=== PATIENT | female | born 1940 | race Caucasian/White ===

== ENCOUNTER 2016-05-12 11:32 | Observation (INO) | payer MEDICARE, BC ==
[2016-05-12] MEDS ORDERED: SODIUM CHLORIDE 0.9% 1,000 ML IV STA (11:48)
[2016-05-12] MEDS ORDERED: ASPIRIN 81 MG CHEW PO STA (11:48)
--- NOTE | 2016-05-12 12:02 | ED ---
Chest Pain HPI - General Source: patient, RN notes reviewed Mode of arrival: wheelchair Limitations: no limitations <Alexia Fragoso - Last Filed: 05/12/16 14:28> <Wang Conteh - Last Filed: 05/12/16 14:44> - General Chief Complaint: Chest Pain Stated Complaint: chest pain Time Seen by Provider: 05/12/16 11:42 - History of Present Illness Initial Comments: 75-year-old female presents emergency department chief complaint of chest pain. Patient has been having this chest pain on and off for the past 2 weeks. Patient states her last aerosol it's developed some palpitations and some heaviness. Patient denies shortness of breath she denies nausea and vomiting she denies diaphoresis with it. Patient denies any heart history states she did have a cardiac stress test done back in November that was normal. Patient states this pain is just new which never had before so she was concerned. Patient states she hasn't had any fever chills with this. Patient denies any other symptoms. Patient's pain is moderate she currently is including. Patient states she does have anxiety and states it feels like anxiety but just doesn't feel the same. Patient denies any recent fever, chills, shortness of breath, back pain, abdominal pain, nausea vomiting, numbness or tingling, dysuria or hematuria, constipation or diarrhea, headaches or visual changes, or any other current symptoms. (Alexia Fragoso) - Related Data Home Medications Medication Instructions Recorded Confirmed Atorvastatin [Lipitor] 20 mg PO HS 05/12/16 05/12/16 Calcium/Magnesium/Zinc 1 tab PO DAILY 05/12/16 05/12/16 [Mlpxddh-Orjtlojwk-Lvpw Tablet] Ibuprofen [Motrin] 600 mg PO Q6H PRN 05/12/16 05/12/16 Losartan [Cozaar] 25 mg PO DAILY 05/12/16 05/12/16 Timolol 0.5% Ophth Soln [Timoptic 1 drop BOTH EYES DAILY 05/12/16 05/12/16 0.5% Ophth Soln] amLODIPine [Norvasc] 10 mg PO DAILY 05/12/16 05/12/16 metFORMIN HCL 1,000 mg PO BID 05/12/16 05/12/16 traMADol HCL [Ultram] 50 mg PO Q6H PRN 05/12/16 05/12/16 valACYclovir HCL [Valacyclovir] 1,000 mg PO BID PRN 05/12/16 05/12/16 Allergies Allergy/AdvReac Type Severity Reaction Status Date / Time Penicillins Allergy Rash/Hives Verified 05/12/16 12:03 lisinopril AdvReac Cough Verified 05/12/16 12:03 Review of Systems ROS Other: All systems not noted in ROS Statement are negative. <Alexia Fragoso - Last Filed: 05/12/16 14:28> ROS Other: All systems not noted in ROS Statement are negative. <Wang Conteh - Last Filed: 05/12/16 14:44> ROS Statement: Those systems with pertinent positive or pertinent negative responses have been documented in the HPI. EKG Findings - EKG Comments: EKG Findings:: normal sinus rhythm 67 bpm, normal axis, no atopy, no S-T depressions or elevations, <Alexia Fragoso - Last Filed: 05/12/16 14:28> Past Medical History Past Medical History: Heart Failure, Diabetes Mellitus, Hyperlipidemia, Hypertension History of Any Multi-Drug Resistant Organisms: None Reported Past Surgical History: Appendectomy, Hysterectomy, Orthopedic Surgery, Tubal Ligation Additional Past Surgical History / Comment(s): coil anuerysm, catatact, Past Psychological History: No Psychological Hx Reported Smoking Status: Former smoker Past Alcohol Use History: None Reported Past Drug Use History: None Reported <Alexia Fragoso - Last Filed: 05/12/16 14:28> General Exam Limitations: no limitations <Alexia Fragoso - Last Filed: 05/12/16 14:28> <Wang Conteh - Last Filed: 05/12/16 14:44> - General Exam Comments Initial Comments: General: The patient is awake and alert, in no distress, and does not appear acutely ill. Eye: Pupils are equal, round and reactive to light, extra-ocular movements are intact; there is normal conjunctiva bilaterally. No signs of icterus. Ears, nose, mouth and throat: There are moist mucous membranes and no oral lesions. Neck: The neck is supple, there is no tenderness. Cardiovascular: There is a regular rate and rhythm. No murmur, rub or gallop is appreciated. Respiratory: Lungs are clear to auscultation, respirations are non-labored, breath sounds are equal. No wheezes, stridor, rales, or rhonchi. Gastrointestinal: Soft, non-distended, non-tender abdomen without masses or organomegaly noted. There is no rebound or guarding present. No CVA tenderness. Bowel sounds are unremarkable. Back: There is no tenderness to palpation in the midline. There is no obvious deformity. No rashes noted. Musculoskeletal: Normal ROM, no tenderness, There is no pedal edema. There is no calf tenderness or swelling. Sensation intact. Pulses equal bilaterally 2+. Neurological: CN II-XII intact, There are no obvious motor or sensory deficits. Coordination appears grossly intact. Speech is normal. Skin: Skin is warm and dry and no rashes or lesions are noted. Psychiatric: Cooperative, appropriate mood & affect, normal judgment. (Alexia Fragoso) Course <Alexia Fragoso - Last Filed: 05/12/16 14:28> <Wang Conteh - Last Filed: 05/12/16 14:44> Vital Signs 05/12/16 05/12/16 05/12/16 11:35 12:23 12:28 Temperature 98.5 F Pulse Rate 75 64 81 Respiratory 20 18 18 Rate Blood Pressure 171/75 184/88 138/73 O2 Sat by Pulse 96 99 97 Oximetry 05/12/16 05/12/16 05/12/16 12:29 12:31 13:47 Temperature Pulse Rate 76 63 Respiratory 18 18 17 Rate Blood Pressure 127/73 145/70 O2 Sat by Pulse 97 98 Oximetry - Reevaluation(s) Reevaluation #1: 05/12/16 13:15 Patient's pain completely resolved with nitroglycerin. (Alexia Fragoso) Reevaluation #2: 05/12/16 14:43 I did a kduj-hz-sdar exam of the patient she is resting comfortably with no chest pain at this time. Heart sounds are within normal limits at this time lungs are clear. No tenderness palpation of the chest wall. She does describe a squeezing type back pain. She'll be admitted with cardiology consultation. The case was discussed with the hospitalist. (Wang Conteh) Chest Pain MDM <Alexia Fragoso - Last Filed: 05/12/16 14:28> <Wang Conteh - Last Filed: 05/12/16 14:44> - [facility] 75-year-old female presents emergency Department chief complaint of chest pain. At this time the patient lab work was reviewed and negative. Patient's pain did improve with the nitro. At this time with the patient's health history with increasing pain there is concern for cardiac origin. At this time we will admit the patient we will start her on ACS protocol. Discussed with patient's family and they do agree with the plan. The case was discussed with the on- call physician who does agree as well. (Alexia Fragoso) Disposition Time of Disposition: 14:28 Decision Date: 05/12/16 Decision Time: 14:28 <Alexia Fragoso - Last Filed: 05/12/16 14:28> <Wang Conteh - Last Filed: 05/12/16 14:44> Clinical Impression: Unstable angina Disposition: ADMITTED IP TO THIS [facility] Condition: Stable Referrals: None,Stated [Primary Care Provider] - 1-2 days
[2016-05-12] MEDS: NITROGLYCERIN SL TABS 0.4 MG TAB SUBLINGUAL STA ×2 (12:23→12:29)
[2016-05-12 12:31] LABS: Basophils % (A) 0 %; CH 27.5; CHCM 33.3; Eosinophils # (A) 0.2 k/uL (0-0.7); Eosinophils % (A) 2 %; HDW 3.19; HGB 11.2 gm/dL (11.4-16.0); Luc # (Auto) 0.13; Luc % (Auto) 2; Lymphocytes # (A) 1.4 k/uL (1.0-4.8); Lymphocytes % (A) 17 %; MCH 27.5 pg (25.0-35.0); MCHC 33.1 g/dL (31.0-37.0); MCV 83.1 fL (80.0-100.0); Mean Platelet Volume 6.6; Monocytes # (A) 0.4 k/uL (0-1.0); Monocytes % (A) 5 %; Neutrophils # (A) 5.9 k/uL (1.3-7.7); Neutrophils % (A) 74 %; RBC 4.09 m/uL (3.80-5.40); RDW 14.6 % (11.5-15.5); WBC (Perox) 8.32
[2016-05-12 12:43] LABS: Partial Thromboplastin Time 22.6 sec (22.0-30.0); Prothrombin Time 10.6 sec (9.0-12.0)
--- NOTE | 2016-05-12 12:49 | XR ---
EXAMINATION TYPE: XR chest 2V DATE OF EXAM: 05/12/2016 12:45 PM COMPARISON: NONE INDICATION: Chest pain TECHNIQUE: Frontal and lateral views of the chest are obtained. FINDINGS: The heart size is normal. The pulmonary vasculature is normal. The lungs are clear. IMPRESSION: 1. No acute pulmonary process.
[2016-05-12 12:50] LABS: ALT 30 U/L (9-52); AST 21 U/L (14-36); Alkaline Phosphatase 58 U/L (38-126); Amylase 57 U/L (30-110); Anion Gap 18 mmol/L; Blood Urea Nitrogen 17 mg/dL (7-17); Carbon Dioxide 23 mmol/L (22-30); Chloride 104 mmol/L (98-107); Glucose 93 mg/dL (74-99); Non-African American GFR(MDRD) 56 (>60 ml/min/1.73 sqM); Potassium 4.1 mmol/L (3.5-5.1); Sodium 145 mmol/L (137-145); Total Bilirubin 0.4 mg/dL (0.2-1.3); Total Protein 7.4 g/dL (6.3-8.2)
[2016-05-12 12:51] LABS: Appearance,Urine Clear (Clear); Bilirubin,Urine Negative (Negative); Glucose,Urine (UA) Negative (Negative); Ketones,Urine Negative (Negative); Leukocyte Esterase,Urine Small (Negative); Mucus,Urine Rare /hpf; Nitrite,Urine Negative (Negative); Particle Count 2377; Protein,Urine Trace (Negative); RBC,Urine 1 /hpf (0-5); Specific Gravity,Urine 1.012 (1.001-1.035); Squamous Epithelial Cell,Urine 2 /hpf (0-4); UA Billing (MACRO vs. MICRO) MICRO; Urobilinogen,Urine <2.0 mg/dL (<2.0); WBC,Urine 2 /hpf (0-5)
[2016-05-12 12:52] LABS: Creatine Kinase 36 U/L (30-135)
[2016-05-12 13:06] LABS: Creatine Kinase MB 0.2 ng/mL (0.0-2.4); Troponin I <0.012 ng/mL (0.000-0.034)
[2016-05-12] MEDS ORDERED: NITROGLYCERIN SL TABS 0.4 MG TAB SUBLINGUAL PRN (14:29)
[2016-05-12] MEDS ORDERED: HEPARIN SODIUM,PORCINE 5,000 UNIT/ML 1 ML VIAL IV ONE (14:29)
[2016-05-12] MEDS ORDERED: IBUPROFEN 600 MG TAB PO PRN (14:30)
[2016-05-12] MEDS ORDERED: valACYclovir HCL 1,000 MG TABLET PO PRN (14:30)
[2016-05-12] MEDS ORDERED: HEPARIN SODIUM,PORCINE/D5W PMX 25,000 UNIT in DEXTROSE/WATER 1 500ML.BAG IV SCH (14:30)
[2016-05-12 19:23] LABS: Creatine Kinase 34 U/L (30-135)
[2016-05-12 19:34] LABS: Creatine Kinase MB <0.2 ng/mL (0.0-2.4); Troponin I <0.012 ng/mL (0.000-0.034)
[2016-05-12] MEDS: traMADol 50 MG TAB PO PRN (19:56)
[2016-05-12] MEDS: metFORMIN 500 MG TAB PO SCH (20:52)
[2016-05-12 20:56] LABS: Glucose,Whole Blood 111 mg/dL (75-99)
[2016-05-12] MEDS ORDERED: ATORVASTATIN 20 MG TAB PO SCH (21:00)
[2016-05-12] MEDS: HEPARIN SODIUM,PORCINE 5,000 UNIT/ML 1 ML VIAL IV PRN (22:15)
[2016-05-12 23:41] VITALS: RESP 18
[2016-05-13 00:42] LABS: Creatine Kinase 34 U/L (30-135)
[2016-05-13 00:54] LABS: Creatine Kinase MB <0.2 ng/mL (0.0-2.4); Troponin I <0.012 ng/mL (0.000-0.034)
[2016-05-13 06:12] LABS: Cholesterol 98 mg/dL (<200); HDL Cholesterol 25 mg/dL (40-60); Triglycerides 269 mg/dL (<150)
[2016-05-13] MEDS: HEPARIN SODIUM,PORCINE 5,000 UNIT/ML 1 ML VIAL IV PRN (06:32)
[2016-05-13 07:44] LABS: Glucose,Whole Blood 101 mg/dL (75-99)
[2016-05-13] MEDS ORDERED: TIMOLOL 0.5% OPHTH DROPS 5 ML BTL BOTH EYES SCH (09:00)
[2016-05-13] MEDS ORDERED: ASPIRIN 325 MG TAB PO SCH (09:00)
[2016-05-13] MEDS ORDERED: LOSARTAN 25 MG TAB PO SCH (09:00)
[2016-05-13] MEDS ORDERED: NON-FORMULARY DRUG (Calcium/Magnesium/Zinc [Calcium-Magnesium-Zinc Tablet] 1 TAB) PO SCH (09:00)
[2016-05-13] MEDS ORDERED: amLODIPine 10 MG TAB PO SCH (09:00)
[2016-05-13] MEDS: traMADol 50 MG TAB PO PRN (09:56)
[2016-05-13 10:38] LABS: Hemoglobin A1C 5.6 % (4.2-6.1)
[2016-05-13] MEDS ORDERED: METOPROLOL TARTRATE 25 MG TAB PO SCH (10:45)
--- NOTE | 2016-05-13 10:47 | P.CRDCN ---
History of Present Illness Consult date: 05/13/16 History of present illness: This is a 75-year-old female with history of hypertension, hypercholesteremia and also diabetes come see her for cardiac evaluation because of recurrent palpitations over the last one week. Patient claims that she had occasional palpitation the past which are being monitored. However for the last one week the became more frequent. She also complained that she had some sensation the neck and and some chest tightness associated with this feeling. Since admission patient had occasional monomorphic single PVCs but has remained mostly asymptomatic. EKGs did not reveal any acute changes. Cardiac enzymes are negative. She had a cardiac workup recently in our office and we're in the process of getting the records. At this point I'm going start her on small dose of beta virgilio in the form of Lopressor 25 mg by mouth twice a day and see if he can suppress this symptomatic PVCs. If she had a recent workup including stress test I'm not pursuing any further testing at this time. However if patient did not have any stress test within the last one year, we may schedule her for a nuclear stress test. Further recommendations depend upon the clinical response. Review of Systems REVIEW OF SYSTEMS: CONSTITUTIONAL:. Patient is doing well. No complaints of fever or chills EYES: Denies diplopia, blurring of vision EARS, NOSE, MOUTH, THROAT: Denies headaches, denies sore throat. CARDIOVASCULAR: As per HPI RESPIRATORY: Denies shortness of breath, denies cough. GASTROINTESTINAL: Denies change in appetite, denies abdominal pain, denies diarrhea GENITOURINARY: Denies hematuria, denies infections. MUSKULOSKELETAL: Denies pain, denies swelling. Denies any cramps or claudication INTEGUMENTARY: Denies rash, denies eczema. NEUROLOGICAL: Denies focal weakness, or visual disturbance. Denies any dizziness or syncope PSYCHIATRIC: Denies anxiety, denies depression. HEMATOLOGIC/LYMPHATIC: Denies any bleeding, denies enlarged lymph nodes. Past Medical History Past Medical History: Heart Failure, Diabetes Mellitus, GERD/Reflux, Hyperlipidemia, Hypertension, Osteoarthritis (OA) Additional Past Medical History / Comment(s): migraines,brain aneurysm(sx done- coil, implant infocopied and placed on chart), tia 2008, fatty liverm djd, hemorrhoids, kidney stones, bronchits, glaucoma, normals violeta test History of Any Multi-Drug Resistant Organisms: None Reported Past Surgical History: Appendectomy, Hysterectomy, Orthopedic Surgery, Tubal Ligation Additional Past Surgical History / Comment(s): coil anuerysm, catatact, sinus sx , rt foot sx lt ankle athroscopy, ureteral stent(lt), colonoscopy,rt breast bx- neg, tubes and ovaries removed, non cancerous lesion removed from tongue/nataliya Past Anesthesia/Blood Transfusion Reactions: No Reported Reaction Past Psychological History: No Psychological Hx Reported Smoking Status: Former smoker Past Alcohol Use History: None Reported, Unable to Obtain Additional Past Alcohol Use History / Comment(s): started smoking 1958 stoppd in 1998 Past Drug Use History: None Reported - Past Family History Mother Family Medical History: Liver Disease Additional Family Medical History / Comment(s): cirrhosis(etoh) Father Family Medical History: Myocardial Infarction ([place]) Medications and Allergies Home Medications Medication Instructions Recorded Confirmed Type Atorvastatin [Lipitor] 20 mg PO HS 05/12/16 05/12/16 History Calcium/Magnesium/Zinc 1 tab PO DAILY 05/12/16 05/12/16 History [Phcqxbn-Xrkepqexd-Ctiw Tablet] Ibuprofen [Motrin] 600 mg PO Q6H PRN 05/12/16 05/12/16 History Losartan [Cozaar] 25 mg PO DAILY 05/12/16 05/12/16 History Timolol 0.5% Ophth Soln [Timoptic 1 drop BOTH EYES DAILY 05/12/16 05/12/16 History 0.5% Ophth Soln] amLODIPine [Norvasc] 10 mg PO DAILY 05/12/16 05/12/16 History metFORMIN HCL 1,000 mg PO BID 05/12/16 05/12/16 History traMADol HCL [Ultram] 50 mg PO Q6H PRN 05/12/16 05/12/16 History valACYclovir HCL [Valacyclovir] 1,000 mg PO BID PRN 05/12/16 05/12/16 History Allergies Allergy/AdvReac Type Severity Reaction Status Date / Time Penicillins Allergy Rash/Hives Verified 05/12/16 12:03 lisinopril AdvReac Cough Verified 05/12/16 12:03 Physical Exam Vitals: Vital Signs Temp Pulse Resp BP Pulse Ox 05/13/16 08:00 98.0 F 68 18 178/74 95 01/04/17 04:00 98.0 F 73 18 134/76 96 05/13/16 03:28 70 18 05/12/16 23:43 68 18 05/12/16 23:40 98.0 F 73 18 151/65 95 05/12/16 20:00 67 16 05/12/16 19:12 98.0 F 77 16 175/73 96 05/12/16 18:47 97.6 F 83 16 162/75 97 Intake and Output 05/12/16 05/13/16 05/13/16 22:59 06:59 14:59 Intake Total 139.675 190.517 Balance 139.675 190.517 Intake: Intake, IV Titration 139.675 190.517 Amount Heparin Sodium,Porcine/ 139.675 190.517 D5w Pmx 25,000 unit In Dextrose/Water 1 500ml. bag @ 12 UNITS/KG/HR 18.5 mls/hr IV .Q24H [facility] Rx#: [id number] Other: # Voids 1 2 Weight 75.5 kg GENERAL EXAM: Patient is alert and oriented and doesn't appear to be in any acute distress HEENT: Normocephalic. Normal reaction of pupils, equal size, normal range of extraocular motion. No erythema or exudates in the throat. NECK: No masses, no nuchal rigidity. CHEST: No chest wall deformity. LUNGS: Equal air entry with no crackles or wheeze. HEART: S1 and S2 normal with no audible mumurs or gallops. Regular rhythm, femorals equal on both sides.. ABDOMEN: No hepatosplenomegaly, normal bowel sounds, no guarding or rigidity. SKIN: No rashes CENTRAL NERVOUS SYSTEM: No focal deficits. EXTREMITIES: No cyanosis, clubbing or edema. Results 05/12/16 12:14 05/12/16 12:14 Cardiac Enzymes 05/12/16 05/12/16 Range/Units 18:08 23:49 CK-MB (CK-2) <0.2 <0.2 (0.0-2.4) ng/mL Troponin I <0.012 <0.012 (0.000-0.034) ng/mL Coagulation 05/12/16 05/13/16 Range/Units 21:07 05:33 APTT 31.7 H 39.5 H (22.0-30.0) sec Lipids 05/13/16 Range/Units 05:33 Triglycerides 269 H (<150) mg/dL Cholesterol 98 (<200) mg/dL HDL Cholesterol 25 L (40-60) mg/dL Current Medications Generic Name Dose Route Start Last Admin Trade Name Freq PRN Reason Stop Dose Admin Aspirin 325 mg 05/13/16 09:00 Aspirin PO DAILY [facility] Atorvastatin Calcium 20 mg 05/12/16 21:00 05/12/16 20:52 Lipitor PO 20 mg HS FRANCY Administration Heparin Sodium (Porcine) 0 unit 05/12/16 22:08 05/13/16 06:32 Heparin IV 3,750 unit PER PROTOCOL PRN Administration Low PTT Protocol Heparin Sodium/Dextrose 25,000 500 mls @ 18.5 mls/hr 05/12/16 14:30 05/13/16 06:33 unit/ IV Solution IV 17.83 units/kg/hr .Q24H FRANCY 27.5 mls/hr Protocol Titration 12 UNITS/KG/HR Ibuprofen 600 mg 05/12/16 14:30 Motrin PO Q6H PRN Mild Pain Losartan Potassium 25 mg 05/13/16 09:00 Cozaar PO DAILY [facility] Metformin HCl 1,000 mg 05/12/16 21:00 05/12/16 20:52 Glucophage PO 1,000 mg BID [facility] Administration Metoprolol Tartrate 25 mg 05/13/16 10:45 Lopressor PO BID [facility] Nitroglycerin 0.4 mg 05/12/16 14:29 Nitrostat SUBLINGUAL Q5M PRN Chest Pain Timolol Maleate 1 drops 05/13/16 09:00 Timoptic BOTH EYES DAILY [facility] Tramadol HCl 50 mg 05/12/16 14:30 05/13/16 09:56 Ultram PO 50 mg Q6H PRN Administration Moderate Pain Valacyclovir HCl 1,000 mg 05/12/16 14:30 Valtrex PO BID PRN Rash Intake and Output 05/12/16 05/13/16 05/13/16 22:59 06:59 14:59 Intake Total 139.675 190.517 Balance 139.675 190.517 Intake: Intake, IV Titration 139.675 190.517 Amount Heparin Sodium,Porcine/ 139.675 190.517 D5w Pmx 25,000 unit In Dextrose/Water 1 500ml. bag @ 12 UNITS/KG/HR 18.5 mls/hr IV .Q24H [facility] Rx#: [id number] Other: # Voids 1 2 Weight 75.5 kg EKG Interpretations (text) Sinus rhythm with unifocal single occasional to frequent PVCs. Assessment and Plan (1) Symptomatic PVCs Status: Acute (2) Hypertension Status: Acute (3) Hyperlipidemia Status: Acute (4) Diabetes mellitus Status: Acute Plan: Patient seemed to be symptomatic from unifocal PVCs. I'm going to start her on metoprolol 25 mg by mouth twice a day and discontinue amlodipine at this time. If patient continues to be symptomatic, may consider ablation. I will also get the workup done in the office recently. Further condition depend upon the clinical course.
[2016-05-13] MEDS: metFORMIN 500 MG TAB PO SCH (11:54)
[2016-05-13 12:15] LABS: Glucose,Whole Blood 147 mg/dL (75-99)
[2016-05-13 12:40] VITALS: BP 147/73; PULSE 82; TEMP 97.9
[2016-05-13 17:18] LABS: Glucose,Whole Blood 107 mg/dL (75-99)
--- NOTE | 2016-05-13 23:42 | P.HPIM ---
History of Present Illness H&P Date: 05/13/16 (Discharge summary as well) Chief Complaint: Palpitations 75-year-old lady is admitted to the hospital with multiple complaints of heart racing or the last 2 weeks. Patient states that it appears intermittently during most of the activities. Patient noted to have some chest pressure with complaints of heart racing in the recent times with minimal activity and sometimes even at rest prior to admission to the hospital. Telemetry and EKG was noted to have multiple PVCs. Patient was on amlodipine prior to admission. A cardiology consultation was obtained. Recommended patient to be started on metoprolol 25 mg by mouth twice a day. At the time of discharge, patient did not have any symptoms of chest pressure. Was able to ambulate without any difficulty. Patient denied any nausea, vomiting, diarrhea. No history of hypothyroidism will also appreciated. Review of Systems All systems: negative (Noted in HPI) Past Medical History Past Medical History: Heart Failure, Diabetes Mellitus, GERD/Reflux, Hyperlipidemia, Hypertension, Osteoarthritis (OA) Additional Past Medical History / Comment(s): migraines,brain aneurysm(sx done- coil, implant infocopied and placed on chart), tia 2008, fatty liverm djd, hemorrhoids, kidney stones, bronchits, glaucoma, normals violeta test -2015 History of Any Multi-Drug Resistant Organisms: None Reported Past Surgical History: Appendectomy, Hysterectomy, Orthopedic Surgery, Tubal Ligation Additional Past Surgical History / Comment(s): coil anuerysm, catatact, sinus sx , rt foot sx lt ankle athroscopy, ureteral stent(lt), colonoscopy,rt breast bx- neg, tubes and ovaries removed, non cancerous lesion removed from tongue/nataliya Past Anesthesia/Blood Transfusion Reactions: No Reported Reaction Past Psychological History: No Psychological Hx Reported Smoking Status: Former smoker Past Alcohol Use History: None Reported, Unable to Obtain Additional Past Alcohol Use History / Comment(s): started smoking 1958 stoppd in 1998 Past Drug Use History: None Reported - Past Family History Mother Family Medical History: Liver Disease Additional Family Medical History / Comment(s): cirrhosis(etoh) Father Family Medical History: Myocardial Infarction ([place]) Medications and Allergies Home Medications Medication Instructions Recorded Confirmed Type Atorvastatin [Lipitor] 20 mg PO HS 05/12/16 05/12/16 History Calcium/Magnesium/Zinc 1 tab PO DAILY 05/12/16 05/12/16 History [Mzkfgsb-Snewzgooh-Ngfm Tablet] Ibuprofen [Motrin] 600 mg PO Q6H PRN 05/12/16 05/12/16 History Losartan [Cozaar] 25 mg PO DAILY 05/12/16 05/12/16 History Timolol 0.5% Ophth Soln [Timoptic 1 drop BOTH EYES DAILY 05/12/16 05/12/16 History 0.5% Ophth Soln] amLODIPine [Norvasc] 10 mg PO DAILY 05/12/16 05/12/16 History metFORMIN HCL 1,000 mg PO BID 05/12/16 05/12/16 History traMADol HCL [Ultram] 50 mg PO Q6H PRN 05/12/16 05/12/16 History valACYclovir HCL [Valacyclovir] 1,000 mg PO BID PRN 05/12/16 05/12/16 History Allergies Allergy/AdvReac Type Severity Reaction Status Date / Time Penicillins Allergy Rash/Hives Verified 05/12/16 12:03 lisinopril AdvReac Cough Verified 05/12/16 12:03 Physical Exam Vitals: Vital Signs Temp Pulse Resp BP BP Pulse Ox 05/13/16 16:00 82 18 05/13/16 12:00 97.9 F 82 18 147/73 97 05/13/16 08:00 98.0 F 68 18 178/74 95 05/13/16 04:00 98.0 F 73 18 134/76 96 05/13/16 03:28 70 18 05/12/16 23:43 68 18 05/12/16 23:40 98.0 F 73 18 151/65 95 Intake and Output 05/13/16 05/13/16 05/14/16 14:59 22:59 06:59 Other: # Voids 3 Exam General appearance oriented 3 no distress Neck is supple no JVD. Heart S1-S2 heart regular rate and rhythm sometimes irregular rhythm is admitted appreciated Lungs good air entry clear to auscultation Abdomen is soft nontender no organomegaly Neurologically no focal motor or sensory deficits appreciated Results CBC & Chem 7: 05/12/16 12:14 05/12/16 12:14 Labs: Abnormal Lab Results - Last 24 Hours (Table) 01/04/17 01/04/17 01/04/17 Range/Units 05:33 05:33 07:34 APTT 39.5 H (22.0-30.0) sec POC Glucose (mg/dL) 101 H (75-99) mg/dL Triglycerides 269 H (<150) mg/dL HDL Cholesterol 25 L (40-60) mg/dL 05/13/16 05/13/16 Range/Units 12:13 17:12 APTT (22.0-30.0) sec POC Glucose (mg/dL) 147 H 107 H (75-99) mg/dL Triglycerides (<150) mg/dL HDL Cholesterol (40-60) mg/dL Thrombosis Risk Factor Assmnt - Choose All That Apply Any of the Below Risk Factors Present?: Yes Each Factor Represents 1 point: Obesity (BMI >25) Other Risk Factors: Yes Each Risk Factor Represents 2 Points: Age 61-74 years Other congenital or acquired thrombophilia - If yes, enter type in comment: No Thrombosis Risk Factor Assessment Total Risk Factor Score: 3 Thrombosis Risk Factor Assessment Level: Moderate Risk Assessment and Plan Plan: #1 symptomatic tachycardia secondary to multiple PVCs #2 diabetes mellitus type 2 #3 hypertension #4 dyslipidemia Plan Patient will be started on metoprolol 25 mg by mouth twice a day. Patient should be discontinued on amlodipine. Patient will be notified in regards to discontinue this medication. Patient should also have a blood test for thyroid-stimulating hormone. She was discharged home to follow up with cardiology. However there is no need for continued hospitalization at this time. The above plans can be pursued on an outpatient basis.
== END 2016-05-13 17:36 | disposition home or self-care (01) ==
LOC: EC 11:32 → 3OBS 14:29
PROVIDERS: ADMIT Internal Medicine; ATTEND Internal Medicine
DX: I49.3 Ventricular premature depolarization (principal); R00.0 Tachycardia, unspecified; E11.9 Type 2 diabetes mellitus without complications; I10 Essential (primary) hypertension; E78.5 Hyperlipidemia, unspecified; R07.89 Other chest pain; H40.9 Unspecified glaucoma; M19.90 Unspecified osteoarthritis, unspecified site; Z88.0 Allergy status to penicillin; Z79.899 Other long term (current) drug therapy; Z79.84 Long term (current) use of oral hypoglycemic drugs; Z79.1 Long term (current) use of non-steroidal anti-inflammatories (NSAID); Z87.891 Personal history of nicotine dependence; Z86.73 Personal history of transient ischemic attack (TIA), and cerebral infarction without residual deficits; Z82.49 Family history of ischemic heart disease and other diseases of the circulatory system
CPT/HCPCS: 99285 ×2; 96376 ×2; 36415; 93005; 80061; 80053; 82150; 83036; 82550; 82553; 83690; 83735; 84484; 85025; 85610; 85730 ×2; 81001; 71020; 96365; 96366; G0378 ×2; J1644 ×3

== ENCOUNTER → 2017-08-05 | Outpatient (CLI) | payer MEDICARE, BC ==
[2017-08-05 14:00] LABS: Potassium 4.5 mmol/L (3.5-5.1)
== END | disposition home or self-care (01) ==
LOC: LABWHC1 12:48
PROVIDERS: ATTEND Psychiatry & Neurology Neurology
DX: D64.9 Anemia, unspecified (principal); G25.81 Restless legs syndrome; H93.19 Tinnitus, unspecified ear; R20.0 Anesthesia of skin; G62.9 Polyneuropathy, unspecified
CPT/HCPCS: 36415; 80048; 82607; 82728; 83540

== ENCOUNTER → 2017-08-13 | Outpatient (CLI) | payer MEDICARE, BC ==
--- NOTE | 2017-08-14 17:19 | CT ---
EXAMINATION TYPE: CT angio COW [place] DATE OF EXAM: 08/13/2017 COMPARISON: CTA [place] April 19, 2013 HISTORY: Aneurysm follow up CT DLP: 2197 mGycm Automated Exposure Control for Dose Reduction was Utilized. TECHNIQUE: CTA scan of the head is performed with IV contrast.,CT scan of the head is performed witho ut and with without and with IV Contrast, patient injected with 80 mL of Isovue 300. Three-D reconstr ucted images are created on an independent workstation and reviewed. FINDINGS: Noncontrast images show no acute intracranial hemorrhage or midline shift. There is ventr icular and sulcal prominence with diffuse cerebral atrophy. There is low attenuation in the periventr icular white matter. The globes are intact and the visualized sinuses are clear. CTA images show codominant vertebrobasilar system. Vertebral arteries are patent to basilar junction. There is hypoplastic right posterior communicating artery. There is patent left posterior communicat ing artery. No aneurysmal change or significant stenosis is seen in posterior circulation. Images of the anterior circulation show streak artifact from coil at right MCA trifurcation. No new a neurysm is seen. Patent anterior communicating artery is not well visualized. 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 No new aneurysm is evident.
== END | disposition home or self-care (01) ==
LOC: RADCTMAIN 16:48
PROVIDERS: ATTEND Psychiatry & Neurology Neurology
DX: I67.1 Cerebral aneurysm, nonruptured (principal)
CPT/HCPCS: 70496; Q9967

== ENCOUNTER → 2017-11-25 | Outpatient (CLI) | payer MEDICARE, BC ==
--- NOTE | 2017-11-26 11:15 | MM ---
Reason for exam: screening (asymptomatic). Last mammogram was performed 1 year and 2 months ago. History: Patient is postmenopausal. Benign excisional biopsy of the right breast. Physical Findings: A clinical breast exam by your physician is recommended on an annual basis and results should be correlated with mammographic findings. MG 3D Screening Mammo W/Cad Bilateral CC and MLO view(s) were taken. Prior study comparison: October 07, 2016, mammogram, performed at [facility]. August 20, 2015, mammogram, performed at [facility]. There are scattered fibroglandular densities. There is no discrete abnormality. ASSESSMENT: Negative, BI-RAD 1 RECOMMENDATION: Routine screening mammogram of both breasts in 1 year.
== END | disposition home or self-care (01) ==
LOC: RADMAMWWP 13:26
PROVIDERS: ATTEND Internal Medicine
DX: Z12.31 Encounter for screening mammogram for malignant neoplasm of breast (principal)
CPT/HCPCS: 77063; 77067

== ENCOUNTER → 2018-07-27 | Outpatient (CLI) | payer MEDICARE, BC | LOC: RADCTMAIN 14:27 | PROVIDERS: ATTEND Psychiatry & Neurology Neurology | DX: Z01.812 Encounter for preprocedural laboratory examination (principal); I67.1 Cerebral aneurysm, nonruptured | CPT/HCPCS: 82565; 84520 ==

== ENCOUNTER → 2018-12-22 | Outpatient (CLI) | payer MEDICARE, BC ==
--- NOTE | 2018-12-27 09:08 | MM ---
Reason for exam: screening (asymptomatic). Last mammogram was performed 1 year and 1 month ago. History: Patient is postmenopausal. Benign excisional biopsy of the right breast. Physical Findings: A clinical breast exam by your physician is recommended on an annual basis and results should be correlated with mammographic findings. MG 3D Screening Mammo W/Cad Bilateral CC and MLO view(s) were taken. Prior study comparison: November 25, 2017, bilateral MG 3d screening mammo w/cad. October 07, 2016, mammogram, performed at [facility]. There are scattered fibroglandular densities. No significant changes when compared with prior studies. ASSESSMENT: Benign, BI-RAD 2 RECOMMENDATION: Routine screening mammogram of both breasts in 1 year.
== END | disposition home or self-care (01) ==
LOC: RADMAMWWP 14:27
PROVIDERS: ATTEND Internal Medicine
DX: Z12.31 Encounter for screening mammogram for malignant neoplasm of breast (principal)
CPT/HCPCS: 77063; 77067

== ENCOUNTER → 2020-03-15 | Outpatient (CLI) | payer MEDICARE, BC ==
--- NOTE | 2020-03-18 11:59 | MM ---
Reason for exam: screening (asymptomatic). Last mammogram was performed 1 year and 3 months ago. History: Patient is postmenopausal. Benign excisional biopsy of the right breast. Physical Findings: A clinical breast exam by your physician is recommended on an annual basis and results should be correlated with mammographic findings. MG 3D Screening Mammo W/Cad Bilateral CC and MLO view(s) were taken. Prior study comparison: December 22, 2018, bilateral MG 3d screening mammo w/cad. November 25, 2017, bilateral MG 3d screening mammo w/cad. There are scattered fibroglandular densities. There are benign appearing vascular calcifications bilaterally. There is no discrete abnormality. ASSESSMENT: Benign, BI-RAD 2 RECOMMENDATION: Routine screening mammogram of both breasts in 1 year.
== END | disposition home or self-care (01) ==
LOC: RADMAMWWP 13:07
PROVIDERS: ATTEND Internal Medicine
DX: Z12.31 Encounter for screening mammogram for malignant neoplasm of breast (principal)
CPT/HCPCS: 77063; 77067

== ENCOUNTER → 2020-10-24 | Outpatient (CLI) | payer MEDICARE, BC ==
--- NOTE | 2020-10-25 08:55 | XR ---
EXAMINATION TYPE: XR KUB DATE OF EXAM: 10/24/2020 COMPARISON: 12/25/2009 INDICATION: Groin pain bladder stone. Kidney stone TECHNIQUE: Single view abdomen FINDINGS: There is a normal bowel gas pattern. There is a small amount of nonspecific small bowel gas. Psoas margins are normal. No organomegaly is present. There is a 0.4 cm calcification at the level of the L2 left transverse process may be a small uretera l stone. Phlebolith is within the pelvis present previously. IMPRESSION: 1. There may be a 0.4 cm left proximal ureteral stone. Correlate with symptoms. 2. Nonspecific abdomen
== END | disposition home or self-care (01) ==
LOC: RAD 17:25
PROVIDERS: ATTEND Nurse Practitioner Adult Health
DX: N20.0 Calculus of kidney (principal); N21.0 Calculus in bladder
CPT/HCPCS: 74018

== ENCOUNTER → 2020-12-27 | Outpatient (CLI) | payer MEDICARE, BC ==
--- NOTE | 2020-12-28 02:18 | MR ---
EXAMINATION TYPE: MR angio head wo con DATE OF EXAM: 12/27/2020 COMPARISON: 08/13/2017 CT scan HISTORY: F/U comparison of aneurysm. Hx aneurysm coil placed. MR angiographic images were obtained of the intracerebral arterial circulation with no contrast. There is arterial flow in the anterior middle and posterior cerebral arteries. There is arterial flow in both distal internal carotid arteries. There is arterial flow in the vertebrobasilar artery syste m. I see no mass effect. There is no evidence of aneurysm or neovascularity. There is large left side posterior communicating artery. The left posterior cerebral artery appears to fill mostly through th e left posterior communicating artery. There is no evidence of arterial stenosis. There is metal yancy fact from aneurysm clip at the right middle cerebral artery and loss of signal and nonvisualization o f the lumen of the right middle cerebral artery trifurcation. There is arterial flow demonstrated in the distal branches of the right middle cerebral artery. IMPRESSION: Negative MR angiogram of the brain. Aneurysm clip artifact. No adverse change compared to CT angiogra m of 08/13/2017.
== END | disposition home or self-care (01) ==
LOC: RADMRIMAIN 17:14
PROVIDERS: ATTEND Psychiatry & Neurology Neurology
DX: Z09 Encounter for follow-up examination after completed treatment for conditions other than malignant neoplasm (principal); Z98.890 Other specified postprocedural states
CPT/HCPCS: 70544

== ENCOUNTER → 2023-02-12 | Outpatient (CLI) | payer MEDICARE, BC ==
--- NOTE | 2023-02-12 15:08 | XR ---
EXAMINATION TYPE: XR hand complete LT DATE OF EXAM: 02/12/2023 CLINICAL HISTORY: pain TECHNIQUE: Frontal, lateral and oblique images of the left hand are obtained. COMPARISON: None. FINDINGS: There is no acute fracture/dislocation evident. Mild to moderate degenerative narrowing DI P joints 2 through 5. The overlying soft tissue appears unremarkable. IMPRESSION: There is no acute fracture or dislocation. ICD 10 NO FRACTURE, INITIAL EVALUATION
== END | disposition home or self-care (01) ==
LOC: RADXRMAIN 13:42
PROVIDERS: ATTEND Internal Medicine
DX: M65.332 Trigger finger, left middle finger (principal)

== ENCOUNTER → 2023-04-14 | Outpatient (CLI) | payer MEDICARE, BC ==
[2023-04-14 20:04] LABS: % Iron Saturation 14.29 (12.00-45.00); ALT 11 U/L (8-44); AST 15 U/L (13-35); Albumin 4.5 g/dL (3.8-4.9); Albumin/Globulin Ratio 1.61 Ratio (1.60-3.17); Alkaline Phosphatase 50 U/L (41-126); BUN/Creat Ratio 8.77 Ratio (12.00-20.00); Blood Urea Nitrogen 11.4 mg/dL (9.0-27.0); Calcium 9.8 mg/dL (8.7-10.3); Carbon Dioxide 20.6 mmol/L (21.6-31.8); Chloride 105 mmol/L (96-109); Globulin 2.8 g/dL (1.6-3.3); Glucose 91 mg/dL (70-110); Iron 58 UG/DL (50-170); Sodium 140 mmol/L (135-145); Total Bilirubin 0.3 mg/dL (0.3-1.2); Total Iron Binding Capacity 406 UG/DL (228-460); Total Protein 7.3 g/dL (6.2-8.2)
[2023-04-14 21:00] LABS: Basophils # (A) 0.07 X 10*3/uL (0.00-0.10); Basophils % (A) 0.7 %; Eosinophils # (A) 0.17 X 10*3/uL (0.04-0.35); Eosinophils % (A) 1.8 %; HCT 35.7 % (37.2-46.3); HGB 11.4 g/dL (12.0-15.0); Lymphocytes # (A) 2.13 X 10*3/uL (0.90-5.00); Lymphocytes % (A) 22.8 %; MCH 27.6 pg (27.0-32.0); MCHC 31.9 g/dL (32.0-37.0); MCV 86.4 FL (80.0-97.0); Mean Platelet Volume 10.7 FL (9.5-12.2); Monocytes % (A) 6.4 %; NRBC Per 100 WBC 0 X 10*3/uL (0.00-0.01); Neutrophils # (A) 6.34 X 10*3/uL (1.80-7.70); Neutrophils % (A) 67.9 %; Platelet Count 242 X 10*3/uL (140-440); RBC 4.13 X 10*6/uL (4.10-5.20); RDW 14.8 % (11.5-14.5); WBC 9.35 X 10*3/uL (4.50-10.00)
== END | disposition home or self-care (01) ==
LOC: LABWHC1 15:34
PROVIDERS: ATTEND Internal Medicine
DX: I10 Essential (primary) hypertension (principal); D50.9 Iron deficiency anemia, unspecified; E55.9 Vitamin D deficiency, unspecified; R41.3 Other amnesia
CPT/HCPCS: 36415; 80053; 82140; 82306; 82607; 82746; 83540; 83550; 84443; 85025; 86780

== ENCOUNTER → 2023-05-01 | Outpatient (CLI) | payer MEDICARE, BC ==
--- NOTE | 2023-05-02 08:13 | MR ---
EXAMINATION TYPE: MR brain wo/w con DATE OF EXAM: 05/01/2023 4:22 PM CLINICAL INDICATION:Female, 82 years old with history of R41.3 OTHER AMNESIA;, Loss of Balance, memor y loss COMPARISON: 12/27/2020 TECHNIQUE: Multi planar, multi sequence imaging was performed through the brain including: T1, T2, In version recovery, susceptibility weighted imaging and gradient echo imaging and Diffusion weighted im aging. The patient was then given intravenous contrast and multi planar, T1 fat-saturation images wer e obtained. IV Contrast: 7 cc Gadobutrol FINDINGS: The soto-white junctions, ventricular system, basal cisterns appear unremarkable. Diffusion-weighted imaging shows no evidence of restricted diffusion to suggest acute/subacute infarct. Intracranial ar terial flow voids are maintained. Midline structures show no abnormality. Scattered foci of high T2 s ignal intensity are seen within the periventricular white matter. The susceptibility weighted images do not reveal any evidence for micro-hemorrhage. After administration of gadolinium, no abnormal enha ncement is seen. Similar appearance of the right M1/M2 segment of the middle cerebral artery. There is a stent graft p resent. There is a thin caliber of lumen. The bone marrow signal is within normal limits. Paranasal sinuses and mastoid air cells: No significant paranasal sinus disease. Visualized orbits: Orbital contents are intact. IMPRESSION: 1. No evidence of intracranial mass, acute/subacute infarct, or abnormal enhancement. 2. Nonspecific white matter changes, likely related to small vessel ischemic disease. 3. 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
== END | disposition home or self-care (01) ==
LOC: RADMRIMAIN 14:54
PROVIDERS: ATTEND Internal Medicine
DX: G93.89 Other specified disorders of brain (principal); T82.858A Stenosis of other vascular prosthetic devices, implants and grafts, initial encounter; Z95.828 Presence of other vascular implants and grafts
CPT/HCPCS: 70553; A9585